=== PATIENT | female | born 1950 | race Caucasian/White ===

== ENCOUNTER → 2017-01-17 | Outpatient (CLI) | payer OTHER, BC ==
[~2017-01-17] VITALS: Ht 170.2 cm; Wt 113.9 kg
[~2017-01-17] MED LIST: ALLEGRA-D 12 H1 EAC1 PO; ALLEGRA180 MG PO; ASPIRIN EC81 M1 PO; ATORVASTATIN CA40 MG PO; CO Q-10100 MG PO; COZAAR 50 MG TA50 M2 PO; EFFIENT10 MG PO; FISH OIL 1,0001 EAC7 PO; LOPRESSOR 12.12.5 MG PO; LOVASTATIN; NEPHROCAPS SOFT1 CAP PO; NITROGLYCERIN0.4 MG PO; NORCO 5-325 TA1 EACH PO; SYNTHROID88 MCG PO; VITAMIN D2000 UNIT PO; ZANTAC 150MG T150 M1 PO; ZOLOFT50 MG PO
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
[2017-01-17 09:58] VITALS: BP 132/76
== END | disposition home or self-care (01) ==
LOC: PAIN 06:57
DX: M54.16 Radiculopathy, lumbar region (principal); I25.10 Atherosclerotic heart disease of native coronary artery without angina pectoris; I10 Essential (primary) hypertension; E66.9 Obesity, unspecified; M48.06 Spinal stenosis, lumbar region; M17.12 Unilateral primary osteoarthritis, left knee; Z87.891 Personal history of nicotine dependence; F10.21 Alcohol dependence, in remission

== ENCOUNTER → 2017-02-07 | Outpatient (CLI) | payer OTHER, BC ==
[~2017-02-07] VITALS: Ht 170.2 cm; Wt 113.3 kg
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
[2017-02-07 10:39] VITALS: BP 139/73
== END ==
LOC: PAIN 06:41
DX: M54.16 Radiculopathy, lumbar region (principal); M48.06 Spinal stenosis, lumbar region; Z87.891 Personal history of nicotine dependence; I10 Essential (primary) hypertension